=== PATIENT | male | born 1995 | race Two or more races ===

== ENCOUNTER 2023-09-27 20:32 | Emergency (ER) | payer SELFPAY ==
[~2023-09-27] VITALS: Ht 170.2 cm; Wt 62.0 kg
[2023-09-27 20:50] VITALS: BP 118/87; PULSE 99; RESP 18; TEMP 99.1; O2SAT 98
[2023-09-27] MEDS ORDERED: LIDOCAINE 1% HCL (LOCAL ANESTH.) INJ 20ML MDV ID ONE (22:15)
[2023-09-27] MEDS ORDERED: TETANUS-DIPTH-ACEL PERTUSSIS 0.5ML SYR Tdap IM ONE (22:15)
[2023-09-27] MEDS ORDERED: CEPH500C PO (23:23)
[2023-09-27] MEDS ORDERED: MUPI2OIN2 EX (23:23)
[2023-09-27] MEDS ORDERED: IBUP1TAB5 PO (23:23)
== END 2023-09-27 23:50 | disposition home or self-care (01) ==
LOC: ER 20:32
DX: S61.012A Laceration without foreign body of left thumb without damage to nail, initial encounter (principal); Z79.1 Long term (current) use of non-steroidal anti-inflammatories (NSAID); Z79.899 Other long term (current) drug therapy; W25.XXXA Contact with sharp glass, initial encounter; Y93.89 Activity, other specified; Y92.89 Other specified places as the place of occurrence of the external cause; Y99.8 Other external cause status
CPT/HCPCS: 12002; 73130; 90471; 90715; 99283; J2001